=== PATIENT | female | born 1940 | race Caucasian/White ===

== ENCOUNTER 2017-07-28 10:55 | Day surgery (SDC) | payer MEDICARE ==
[~2017-07-28] VITALS: Ht 162.6 cm; Wt 75.7 kg
[~2017-07-28 10:55] MED LIST: ASPIR 8181 MG PO; ATORVASTATIN CA40 MG PO; DICLOFENAC SOD100 G1 TP; DILTIAZEM 24HR240 M3 PO; FUROSEMIDE20 MG PO; ISOSORBIDE MONO30 MG PO; METOPROLOL TART25 MG PO; MULTIVITAMINS1 EAC7 PO; NITROSTAT0.4 MG SL; NORVASC5 MG PO; OLMESARTAN MEDO40 MG PO
--- NOTE | 2017-07-28 12:24 | NUR ---
07/28/17 Radha4 Mimi Mendoza 1217-PATIENT TO PACU ON 3L NC O2 SAT 100% LAYING PRONE. DRESSING CDI TO BACK. RR EVEN. SR
[2017-10-20] MEDS ORDERED: ZANTAC150 MG PO (11:02)
[2017-10-20] MEDS ORDERED: ZOLOFT25 MG PO (11:02)
== END 2017-07-28 13:13 | disposition home or self-care (01) ==
LOC: OPS 10:55 → DS 10:55 → OPS 12:00
PROVIDERS: Specialist
PROC: 079T3ZX Drainage of Bone Marrow, Percutaneous Approach, Diagnostic (ICD-10-PCS; 2017-07-28)
PROC: 07DR3ZX Extraction of Iliac Bone Marrow, Percutaneous Approach, Diagnostic (ICD-10-PCS; principal; 2017-07-28 12:00)
DX: C90.00 Multiple myeloma not having achieved remission (principal); I25.2 Old myocardial infarction; Z95.1 Presence of aortocoronary bypass graft; Z79.899 Other long term (current) drug therapy; Z79.1 Long term (current) use of non-steroidal anti-inflammatories (NSAID); Z79.82 Long term (current) use of aspirin; Z88.5 Allergy status to narcotic agent
CPT/HCPCS: 36415; 80053; 82232; 82784; 83615; 83883; 85025; 99152; J2250; J3010; J7120

== ENCOUNTER 2017-09-10 18:14 | Emergency (ER) | payer MEDICARE ==
[~2017-09-10] VITALS: Ht 162.6 cm; Wt 76.2 kg
--- OUTSIDE RECORDS SUMMARY | ~2017-09-10 | XMS | Encounter Summary ---
Demographics + + + | Address | [address] | | | [place] [address] | + + + | Home Phone | | + + + | Preferred Language | Unknown | + + + | Marital Status | | + + + | Samaritan Affiliation | 1013 | + + + | Race | Unknown | + + + | Ethnic Group | Unknown | + + + Author + + + | Author | [facility] | | | and [place] | + + + | Organization | [facility] | | | and [place] | + + + | Address | Unknown | + + + | Phone | Unavailable | + + + Support + + +---------+ + | Name | Relationship | Address | Phone | + + +---------+ + | Ayad Chahal | ECON | Unknown | | + + +---------+ + | Yonatan Chahal | ECON | Unknown | | + + +---------+ + | Nithya Rondon | ECON | Unknown | | + + +---------+ + | Chitra Haynes | ECON | Unknown | | + + +---------+ + | Belinda Chahal | ECON | Unknown | | + + +---------+ + Care Team Providers + +------+ + | Care Costing Analyst Name | Role | Phone | + +------+ + | Silvio Chu MD | PCP | | + +------+ + Reason for Visit +--------+ + | Reason | Comments | +--------+ + | Other | | +--------+ + Encounter Details +--------+ + + + + | Date | Type | Department | Care Team | Description | +--------+ + + + + | 07/31/ | Telephone | [facility] | Tho, | Other | | 2018 | | [facility] | Steve Dominique MD [address] | | | | [facility] [address] | [address] | | | | | [address] | [place] [address] | | | | | [place] [address] | [phone] | | | | | [phone] | | | +--------+ + + + + Social History + +-------+ +--------+------+ | Tobacco Use | Types | Packs/Day | Years | Date | | | | | Used | | + +-------+ +--------+------+ | Never Smoker | | | | | + +-------+ +--------+------+ + + +---------+ + | Alcohol Use | Drinks/We | oz/Week | Comments | | | ek | | | + + +---------+ + | No | 0 | 0.0 | | | | Standard | | | | | drinks or | | | | | | | | | | equivalen | | | | | t | | | + + +---------+ + + + + | Sex Assigned at | Date Recorded | | | | + + + | Not on file | | + + + as of this encounter Plan of Treatment Not on fileas of this encounter Visit Diagnoses Not on filein this encounter"
--- OUTSIDE RECORDS SUMMARY | ~2017-09-10 | XMS | Encounter Summary ---
Demographics + + + | Address | [address] | | | [place] [address] | + + + | Home Phone | | + + + | Preferred Language | Unknown | + + + | Marital Status | | + + + | Anglican Affiliation | Unknown | + + + | Race | Unknown | + + + | Ethnic Group | Unknown | + + + Author + + + | Author | [facility] | + + + | Organization | [facility] | + + + | Address | Unknown | + + + | Phone | Unavailable | + + + Support + + +---------+ + | Name | Relationship | Address | Phone | + + +---------+ + | Ayad Chahal | ECON | Unknown | | + + +---------+ + Care Team Providers + +------+ + | Care Airfield Services Officer Name | Role | Phone | + +------+ + | Silvio Chu MD | PCP | | + +------+ + Encounter Details +--------+ + + + + | Date | Type | Department | Care Team | Description | +--------+ + + + + | 06/20/ | Orders Only | [facility] | Brandi Verde CMA | Essential | | 2017 | | [place] [address] | | hypertension; | | | | [address] | | Dyslipidemia; | | | | [place] [address] | | Chronic kidney | | | | [phone] | | disease, stage III | | | | | | (moderate) | +--------+ + + + + Social [...] [place] | | | | | | [address] | | | | | | | | +--------+---------+ + + + | 02/07/ | Office | Cardiology | Kadi Boogie, | | | 2017 | Visit | | MD Frankie Yee | | | | | | [address] | | | | | | [place] [address] | | | | | | [phone] | | | | | | | | +--------+---------+ + + + as of this encounter Results Urinalysis (reflex to micro) (06/19/2017) + + [...] + + | Urine | [facility] [address] [facility] [address] [place], [place] | | | [address] | + + + + + | Narrative | + + | Casts: Hyaline 2+ Bacteria: 1+ | + + Uric acid (06/19/2017) + +---------+ + | Component | Value | Ref Range | + +---------+ + | URIC ACID | 7.6 (A) | 2.3 - 6.6 | + +---------+ + + + + | Specimen | Performing Laboratory | + + + | Blood | [facility] [address] [place], [facility] [address] [place] | | | [address] | + + + Protein / creatinine ratio, urine (06/19/2017) + + + + | Component | Value | Ref Range | + + + + | UR | 223.7 (A) | 0 - 150 | | PROTEIN/CREATININE | | | + + + + + + + | Specimen | Performing Laboratory | + + + | Urine - Urine, | [facility] [address], [facility] [address] [place], [place] | | Unspecified Source | [id number] | + + + CBC W/Auto Diff (Reflex to [...] + | Blood | [facility] [address] [facility] [address] [place], [place] | | | [address] | + + + Basic metabolic panel [...] + | Blood | [facility] [address] [facility] [address] [place], [place] | | | [address] | + + + in this encounter Visit Diagnoses + + | Diagnosis | + + | Essential hypertension | + + | Unspecified essential hypertension | + + | Dyslipidemia | + + | Other and unspecified hyperlipidemia | + + | Chronic kidney disease, stage III (moderate) | + + | Chronic kidney disease, Stage III (moderate) | + +"
--- OUTSIDE RECORDS SUMMARY | ~2017-09-10 | XMS | Encounter Summary ---
Demographics + + + | Address | [address] | | | [place] [address] | + + + | Home Phone | | + + + | Preferred Language | Unknown | + + + | Marital Status | | + + + | Yazidi Affiliation | Unknown | + + + | Race | Unknown | + + + | Ethnic Group | Unknown | + + + Author + + + | Author | [facility] | + + + | Organization | [facility] | + + + | Address | Unknown | + + + | Phone | Unavailable | + + + Support + + +---------+ + | Name | Relationship | Address | Phone | + + +---------+ + | Ayad Chahal | ECON | Unknown | | + + +---------+ + Care Team Providers + +------+ + | Care Ux Research Associate Name | Role | Phone | + [...] | , benign | Val[address]lero | [address] | | | | | CKD (chronic | [address] | | | | | kidney | [place], | [place], | | | | | disease), | [place] [address] | [place] [address] | | | | | stage III | Phone: | Phone: | | | | | Persistent | [phone] | [phone] | | | | | proteinuria | Fax: | Fax: | | | | | | [phone] | [phone] | | | | | Hyperuricemi | [...] | [facility] | | 2018 | | [place] [address] | | hypertension, | | | | [address] | | benign; CKD (chronic | | | | [address] [place], [place] | | kidney disease), | | | | [address] | | stage III; | | | [...] | | | | | | [address] [place], [place] | | | | | | [address] | | | | | | | | +--------+---------+ + + + | 02/07/ | Office | Cardiology | Kadi Boogie, | | | 2017 | Visit | | [address] | | | | | | [address], | | | | | | [place] [address] | | | | | | [phone] | | | | | | | [...]
--- OUTSIDE RECORDS SUMMARY | ~2017-09-10 | XMS | Encounter Summary ---
Demographics + + + | Address | [address] | | | [place] [address] | + + + | Home Phone | | + + + | Preferred Language | Unknown | + + + | Marital Status | | + + + | Latter-Day Affiliation | Unknown | + + + | Race | Unknown | + + + | Ethnic Group | Unknown | + + + Author + + + | Author | [facility] | + + + | Organization | [facility] | + + + | Address | Unknown | + + + | Phone | Unavailable | + + + Support + + +---------+ + | Name | Relationship | Address | Phone | + + +---------+ + | Ayad Chahal | ECON | Unknown | | + + +---------+ + Care Team Providers + +------+ + | Care Carbide Grinder Name | Role | Phone | + [...] Dyslipidemia; | | | | [place] [address] | | Chronic kidney | | | | [phone] | | disease, stage III | | [...] 10/23/ | Office | Nephrology | Avila uPlido MD | | | 2017 | Visit [...] | | | | | | [place] [address] | | | | | | [phone] | | | | | | | [...] + | Urine | [facility] [address] [facility] [address] [place], [place] | | | [address] | + + + + + | [...] + | Blood | [facility] [address] [place], [facility] [address] [place] | | | [address] | + + + Protein / creatinine ratio, urine (06/19/2017) + + + + | Component | Value | Ref Range | + + + + | UR | 223.7 (A) | 0 - 150 | | PROTEIN/CREATININE | | | + + + + + + + | Specimen | Performing Laboratory | + + + | Urine - Urine, | [facility] [address] [place], [facility] [address] [place], [place] | | Unspecified Source | [address] | + + + CBC W/Auto Diff [...] + | Blood | [facility] [address] [facility] [address] [place], [place] | | | [address] | + + + Basic metabolic panel [...] + | Blood | [facility] [address] [facility] [address] [place], [place] | | | [address] | + + + in this encounter [...]
--- OUTSIDE RECORDS SUMMARY | ~2017-09-10 | XMS | Clinical Summary ---
Demographics + + + | Address | [address] | | | [place] [address] | + + + | Home Phone | | + + + | Preferred Language | Unknown | + + + | Marital Status | | + + + | Shinto Affiliation | 1013 | + + + | Race | Unknown | + + + | Ethnic Group | Unknown | + + + Author + + + | Author | [facility] | | | and [place] | + + + | Organization | [facility] | | | and [place]ana | [...] Team Providers + +------+ + | Care Geographic Information Scientist Name | Role | Phone | + +------+ + | Silvio Chu MD | PP | | + +------+ + Allergies No Known Allergies Current Medications + + +--------+---------+------+------+-------+ | Prescription | Sig. | Disp. | Refills | Star | End | Statu | | | | | | t | Date | s | | | | | | Date | | | + + +--------+---------+------+------+-------+ | atorvaSTATin | 40 mg Daily. | | | 01/2 | | Activ | | (LIPITOR) 40 mg | | | | 5/20 | | e | | tablet | | | | 17 | | | + + +--------+---------+------+------+-------+ | diclofenac | | | | 02/1 | | Activ | | (VOLTAREN) 1% GEL | | | | 0/20 | | e | | | | | | 17 | | | + + +--------+---------+------+------+-------+ | furosemide (LASIX) | 40 mg. | | | 12/3 | | Activ | | 20 mg tablet | | | | 20 | | e | | | | | | 16 | | | + + +--------+---------+------+------+-------+ | olmesartan | | | | 02/2 | | Activ | | (BENICAR) 40 MG | | | | 3/20 | | e | | tablet | | | | 17 | | | + + +--------+---------+------+------+-------+ | apixaban (ELIQUIS) | Take 5 mg by mouth 2 | | | | | Activ | | 5 mg tablet | times daily. | | | | | e | + + +--------+---------+------+------+-------+ | azithromycin | Take 1 tablet by | 7 | 0 | 04/0 | | Activ | | (ZITHROMAX) 250 mg | mouth Daily. Two | tablet | | 6/20 | | e | | tablet | tabs first day then | | | 17 | | | | | one a day till gone | | | | | | + + +--------+---------+------+------+-------+ | aspirin 81 mg | Take 1 tablet by | 30 | | 04/0 | | Activ | | chewable tablet | mouth Daily. | tablet | | 6/20 | | e | | | | | | 17 | | | + + +--------+---------+------+------+-------+ | benzonatate | Take 1 capsule by | | 0 | 04/0 | | Activ | | (TESSALON) 200 MG | mouth 3 times daily | | | 6/20 | | e | | capsule | as needed for Cough. | | | 17 | | | + + +--------+---------+------+------+-------+ | metoprolol | Take 1 tablet by | 60 | 11 | 04/0 | 04/0 | Expir | | tartrate (LOPRESSOR) | mouth 2 times daily. | tablet | | 6/20 | 6/20 | ed | | 25 mg tablet | | | | 17 | 18 | | + + +--------+---------+------+------+-------+ Active Problems + + + | Problem | Noted Date | + + + | S/P CABG x 3 | 08/25/2016 | + + + + + | Overview: | + + + + + | NSTEMI (non-ST elevated myocardial infarction) ([facility]) | 07/20/2016 | + + + + + | Overview: Cardiac cath 20 July 2016Left ventricular | | end-diastolic pressure (LVEDP) was 26 mm Hg. There was no | | gradient across the aortic valve.Left Ventriculography: | | Estimated EF 38% - distal anterior and distal inferior | | akinesis. Left main coronary artery: Large vessel 10%Left | | anterior descending coronary artery: Mid 99% stenosis EVENS 2 | | flow. Good distal targetCircumflex coronary artery: 80% | | before the major marginal branch. 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 | + + + + + | Dyslipidemia | 07/20/2016 | + + + | Essential hypertension | 07/20/2016 | + + + | H/O: CVA (cerebrovascular accident) | 07/20/2016 | + + + Encounters +--------+ + + + + | Date | Type | Specialty | Care Team | Description | +--------+ + + + + | 08/22/ | Refill | | Lisa Colunga, | Medication Refill | | 2017 | | | | | +--------+ + + + + | 07/31/ | Telephone | | Tho | Other | | 2017 | | | Steve Dominique MD | | +--------+ + + + + from Last 3 Months Family History + + +------+ + | Medical History | Relation | Name | Comments | + + +------+ + | Coronary artery | Daughter | | | | disease | | | | + + +------+ + | Coronary artery | Mother | | | | disease | | | | + + +------+ + | Coronary artery | Son | | | | disease | | | | + + +------+ + + +------+--------+ + | Relation | Name | Status | Comments | + +------+--------+ + | Daughter | | | | + +------+--------+ + | Mother | | | | + +------+--------+ + | Son | | | | + +------+--------+ + Social History + +-------+ +--------+------+ | [...] + + + | Blood Pressure | 120/84 | 08/25/2016 1230 PDT | + + + + | Pulse | 68 | 08/25/2016 1230 PDT | + + + + | Temperature | 36.1 C (97 F) | 07/20/20162219 PST | + + + + | Respiratory Rate | 14 | 08/25/20161229 PDT | + + + + | Oxygen Saturation | 95% | 07/20/20162219 PST | + + + + | Inhaled Oxygen | - | - | | Concentration | | | + + + + | Weight | 76.7 kg (169 lb) | 08/25/20161229 PDT | + + + + | Height | 167.6 cm (5' 6") | 08/25/20161229 PDT | + + + + | Body Mass Index | 27.28 | 08/25/2016 1230 PDT | + + + + Plan of Treatment + + + + + | Health [...] | + + + + + Results Not on filefrom Last 3 Months Insurance + +--------+ +--------+ +---------+ | Payer | Benefi | Subscriber | Type | Phone | Address | | | t Plan | ID | | | | | | / | | | | | | | Group | | | | | + +--------+ +--------+ +---------+ | MEDICARE | MEDICA | xxxxxxxxxx | Medica | [phone] | | | RE | | re | [phone] | | | | PART A | | | | | | | AND B | | | | | + +--------+ +--------+ +---------+ | AARP | AARP | xxxxxxxxxxx | Indemn | [phone] | | | | MDCR | | ity | [phone] | | | | SUPPL | | | | | + +--------+ +--------+ +---------+ + +--------+ +--------+ + + | Guarantor Name | Accoun | Relation to | Date | Phone | Billing Address | | | t Type | Patient | of | | | | | | | | | | + +--------+ +--------+ + + | ANDERSON CHAHAL | Person | Self | [birth year] | Home: | [address] | | | joan/Mandeep | | [phone] | [phone] | [place] | | | opal | | | 1965 | [address] | + +--------+ +--------+ + +
--- OUTSIDE RECORDS SUMMARY | ~2017-09-10 | XMS | Encounter Summary ---
Demographics + + + | Address | [address] | | | [place] [address] | + + + | Home Phone | | + + + | Preferred Language | Unknown | + + + | Marital Status | | + + + | Caodaism Affiliation | Unknown | + + + | Race | Unknown | + + + | Ethnic Group | Unknown | + + + Author + + + | Author | [facility] | + + + | Organization | [facility] | + + + | Address | Unknown | + + + | Phone | Unavailable | + + + Support + + +---------+ + | Name | Relationship | Address | Phone | + + +---------+ + | Ayad Chahal | ECON | Unknown | | + + +---------+ + Care Team Providers + +------+ + | Care Elevator Erector Name | Role | Phone | + +------+ + | Silvio Chu MD | PCP | | + +------+ + Reason for Visit Consult and Treat (Routine) + +--------+ + + + + | Status | Reason | Specialty | Diagnoses / | Referred By | Referred To | | | | | Procedures | Contact | Contact | + +--------+ + + + + | Authorized | | Nephrology | Diagnoses | Vlad, | Avila Pulido | | | | | Chronic | MD Silvio | [address] | | | | | kidney | [address] | | | | | disease, | [address] | | | | | stage 3 | [address] | [place], | | | | | (moderate) | [place], | [place] [address] | | | | | Procedures | [place] [address] | Phone: | | | | | CONSULT | Phone: | [phone] | | | | | | [phone] | Fax: | | | | | | Fax: | [phone] | | | | | | [phone] | | + +--------+ + + + + Encounter Details +--------+ + + + + | Date | Type | Department | Care Team | Description | +--------+ + + + + | 06/26/ | Initial | [facility] | Avila Pulido MD | Essential | | 2018 | consult | [place] [address] | [address] | hypertension, benign | | | | [facility] [address] | [address] [place], [place] | (Primary Dx); CKD | | | | [address] [place], [place] | [address] | (chronic kidney | | | | [address] | | disease), stage III; | | [...] + + + | Blood Pressure | 120/75 | 06/26/2017 9:49 AM PST | + + + + | Pulse | 68 | 06/26/2017 9:49 AM PST | + + + + | Temperature | 35.7 C (96.3 F) | 06/26/2017 9:49 AM PST | + + + + | Respiratory Rate | - | - | + + + + | Oxygen Saturation | 95% | 06/26/2017 9:49 AM PST | + + + + | Inhaled Oxygen | - | - | | Concentration | | | + + + + | Weight | 74.8 kg (165 lb) | 06/26/2017 9:49 AM PST | + + + + | Height | 165.1 cm (5' 5") | 06/26/2017 9:49 AM PST | + + + + | Body Mass Index | 27.46 | 06/26/2017 9:49 AM PST | + + + + in this encounter Instructions Patient Instructions - Avila Pulido MD - 06/26/2017 10:00 AM PSTDiscussions/Recommendatio ns: I discussed today with Ms. Chahal the meaning of her CKD and the interaction of that wit h her hypertension. I stressed the importance of keeping her BP controlled and avoiding getting dehydrated i f we are to have a chance at helping preserve her renal function. She showed good understan ding. I gave her instructions on how to chart her blood pressure in the appropriate manner at home. She is to call us if they fall outside of the optimal provided range. She will bring her sphygmomanometer for validation once a year. She will strictly abide by a low salt diet and will avoid all kinds of NSAIDs for analge sean. Also: I will not change any of her vasoactive meds today. She will report back to me her home BP readings if they fall outside of the optimal prov ided range. At that time, I will decide whether any change to his vasoactive regimen is clinton anted. I asked her to start taking a MVI with Folate. I sent her for a renal & bladder U/S soon. I sent her evaluation by the Hem/Onc team here locally for her apparent monoclonal gammo eulogio. I will also leave the management of her anemia to the Hematology team. She will continue to F/U with your office regularly. She will have a RFP, CBC, intact PTH, uric acid, urinalysis, Urine total xnrwwpl-ic-iggh tinine ratio before she comes back in 3 months.in this encounter Progress Notes Avila Pulido MD - 06/26/2017 10:00 AM PSTFormatting of this note may be different from th e original. Patient Active Problem List Diagnosis S/P CABG x 3 H/O: CVA (cerebrovascular accident) Essential hypertension Dyslipidemia Dear Dr Chu: Thank you for the opportunity to see Ms. Chahal in consult today. As you are familiar with her case, I will not state her past history in detail. Briefly, she is a 76 y.o. female pa tient with past history as delineated above. she is here to be evaluated for her CKD & its associated complications. Her sCr & eGFR in 03/2017 were 1.5 & 34. The patient has history of hypertension since ~1989; her BP control has been reportedly french quate; she denies any history of prolonged exposure to NSAIDs or recent exposure to known n ephrotoxins. she denies any recurrent nephrolithiasis or pyelonephritis. she tells me that s he's had no history of urinary retention, gross hematuria or dysuria. she has mild urge inco ntinence symptoms. No symptoms of UTI; she has 0-1 nightly nocturia. No history of passing kidney stones. she has no foamy urine either. her baseline Creatinine is 1.5. There is no f amily history of renal genetic diseases such as PKD. she says that she feels 'good ' today. she denies any blurred vision tinnitus, headache, f ever, chills, or cough. No nausea, vomiting, abdominal pain, diarrhea, melena, or hematoche jammie. No chest pain, palpitation, dizziness, loss of consciousness, orthopnea, paroxysmal no cturnal dyspnea; she has had a mild leg edema for a few years. The following portions of the patient's history were reviewed and updated as appropriate: a llergies, current medications, past medical history, past social history, past surgical hist ory, family history and problem list. I also reviewed with her the records received from you r office; these were very informative. As in History of Present Illness & in Assessment. All the twelve systems were reviewed and were otherwise negative. Current Outpatient Prescriptions Medication Sig Dispense Refill albuterol (PROAIR HFA) 108 (90 BASE) MCG/ACT inhaler Inhale 2 puffs into the lungs ever y 4 (four) hours as needed for Wheezing. amLODIPine (NORVASC) 5 MG tablet Take 5 mg by mouth daily. aspirin 81 MG tablet Take 81 mg by mouth daily. atorvastatin (LIPITOR) 40 MG tablet Take 40 mg by mouth nightly. Diclofenac Sodium 1 % CREA Place onto the skin. furosemide (LASIX) 40 MG tablet Take 20 mg by mouth daily. metoprolol (LOPRESSOR) 25 MG tablet Take 25 mg by mouth 2 (two) times daily. nitroGLYCERIN (NITROSTAT) 0.[address] 0.4 mg under the tongue every 5 (five) minutes as needed for Chest pain. olmesartan (BENICAR) 40 MG tablet Take 40 mg by mouth daily. Doxylamine Succinate, Sleep, (SLEEP AID PO) Take by mouth. No current facility-administered medications for this visit. Physical Exam: BP 120/75 (BP Location: Right upper arm, Patient Position: Sitting) | Pulse 68 | Temp 96. 3 F (35.7 C) (Temporal) | Ht 1.651 m (5' 5") | Wt 74.8 kg (165 lb) | SpO2 95% | BMI 27.46 kg/m General appearance: Pleasant, not in acute distress. Neck: Supple without tracheal deviation or jugular venous distension. Head and ENT: Head is atraumatic. The oropharynx is without erythema or thrush. Eyes: Anicteric. The extraocular muscle movements are normal. Lungs: Clear to auscultation bilaterally. There are no wheezes. Heart: Regular rate and rhythm without any rub, gallop. Grade 2 systolic murmur, best at t he LSB. Abdominal exam: Soft and nontender with normal bowel sounds. Musculoskeletal: No costovertebral angle tenderness bilaterally. Extremities: Warm to touch with 1+ leg edema. There is no cyanosis. Skin: There are no rashes, petechiae, or ecchymosis. Neurological: Awake, alert, and oriented to time, place, and person. Normal gross motor po wer. There is no asterixis. Psychiatric: The patient s behavior is normal. Judgment and thought content are normal. Lab Results Component Value Date BUN 06/19/2017 CREATININE 1.49 (A) 06/19/2017 EGFR 34 (A) 06/19/2017 NA 139 06/19/2017 K 4.3 06/19/2017 CL 104 06/19/2017 CO2 22 06/19/2017 CA 9.6 06/19/2017 ALB 3.8 03/31/2017 HGB 10.8 (A) 06/19/2017 URICACID 7.6 (A) 06/19/2017 WBC 5.3 06/19/2017 HCT 31.9 (A) 06/19/2017 ALBUMIN 4.05 04/24/2017 FERRITIN 147.1 04/24/2017 LABIRON 37.7 04/24/2017 LABPROT 223.7 (A) 06/19/2017 Assessment: Ms. Chahal is a 76 y.o. female patient with stage III CKD on a background of longstanding h ypertension. 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 The possibility that the kidneys are involved in a monoclonal gammopathy is the re. RENAL FUNCTION: Relatively stable vs 03/2017 BLOOD PRESSURE: controlled BLOOD SUGAR: Reports it normal ELECTROLYTES: ok ANEMIA: Mild; macrocytic VITAMIN D: To be checked thru your office PARATHYROID HORMONE: To be checked URIC ACID: Mildly up PROTEINURIA: mild URINALYSIS: No UTI or hematuria VOLUME STATUS: Euvolumic. Discussions/Recommendations: I discussed today with Ms. Chahal the meaning of her CKD and the interaction of that wit h her hypertension. I stressed the importance of keeping her BP controlled and avoiding getting dehydrated i f we are to have a chance at helping preserve her renal function. She showed good understan ding. I gave her instructions on how to chart her blood pressure in the appropriate manner at home. She is to call us if they fall outside of the optimal provided range. She will bring her sphygmomanometer for validation once a year. She will strictly abide by a low salt diet and will avoid all kinds of NSAIDs for analge sean. Also: I will not change any of her vasoactive meds today. She will report back to me her home BP readings if they fall outside of the optimal prov ided range. At that time, I will decide whether any change to his vasoactive regimen is clinton anted. I asked her to start taking a MVI with Folate. I sent her for a renal & bladder U/S soon. I sent her evaluation by the Hem/Onc team here locally for her apparent monoclonal gammo eulogio. I will also leave the management of her anemia to the Hematology team. She will continue to F/U with your office regularly. She will have a RFP, CBC, intact PTH, uric acid, urinalysis, Urine total zvamrkw-wp-spjv tinine ratio before she comes back in 3 months. More than 30 minutes of this 60-minute visit was spent in education and counseling and a nswering all of her questions to her satisfaction. Thank you Dr Chu for the opportunity to see this patient in consult today. Please do n ot hesitate to call me at any time with questions or concerns. Truly yours, Avlia Johnsonoum, MD [facility] in this encounter Plan of Treatment +--------+---------+ + + + | Date | Type | Specialty | Care Team | Description | +--------+---------+ + + + | 10/23/ | Office | Nephrology | Avila Pulido MD | | | 2017 | Visit | | [address] | | | | | | [address] [place] | | | | | | [id number] | | | | | | | | +--------+---------+ + + + | 02/07/ | Office | Cardiology | Kadi Boogie, | | | 2017 | Visit | | MD Frankie Yee | | | | | | Dr [address], | | | | | | [place] [address] | | | | | | [phone] | | | | | | | | +--------+---------+ + + + as of this encounter Visit Diagnoses + + | Diagnosis | + + | Essential hypertension, benign - Primary | + + | CKD (chronic kidney [...]
--- OUTSIDE RECORDS SUMMARY | ~2017-09-10 | XMS | Encounter Summary ---
Demographics + + + | Address | [address] | | | [place] [address] | + + + | Home Phone | | + + + | Preferred Language | Unknown | + + + | Marital Status | | + + + | Hindu Affiliation | Unknown | + + + | Race | Unknown | + + + | Ethnic Group | Unknown | + + + Author + + + | Author | [facility] | + + + | Organization | [facility] | + + + | Address | Unknown | + + + | Phone | Unavailable | + + + Support + + +---------+ + | Name | Relationship | Address | Phone | + + +---------+ + | Ayad Chahal | ECON | Unknown | | + + +---------+ + Care Team Providers + +------+ + | Care Optometrist Name | Role | Phone | + +------+ + | Paddy [place] MD | PCP | | + +------+ + Reason for Visit + + + | Reason | Comments | + + + | Labs Only | [facility] dated 06/19/2017 | + + + Encounter Details +--------+ + + + + | Date | Type | Department | Care Team | Description | +--------+ + + + + | 06/20/ | Documentati | [facility] | Brandi Verde CMA | Labs Only ([facility] | | 2018 | on Only | [place] [address] | | Labs dated | | | | [address] | | 06/19/2017) | | | | [place] [address] | | | | | | [phone] | | | +--------+ + + + [...] [place] | | | | | | [address] | | | | | | | | +--------+---------+ + + + | 02/07/ | Office | Cardiology | Kadi Boogie, | | | 2017 | Visit | | MD Frankie Yee | | | | | | Dr [address], | | | | | | [place] [address] | | | | | | [phone] | | | | | | | | +--------+---------+ + + + as of this encounter Visit Diagnoses Not on filein this encounter"
--- OUTSIDE RECORDS SUMMARY | ~2017-09-10 | XMS | Encounter Summary ---
Demographics + + + | Address | [address] | | | [place] [address] | + + + | Home Phone | | + + + | Preferred Language | Unknown | + + + | Marital Status | | + + + | Jewish Affiliation | Unknown | + + + | Race | Unknown | + + + | Ethnic Group | Unknown | + + + Author + + + | Author | [facility] | + + + | Organization | [facility] | + + + | Address | Unknown | + + + | Phone | Unavailable | + + + Support + + +---------+ + | Name | Relationship | Address | Phone | + + +---------+ + | Ayad Chahal | ECON | Unknown | | + + +---------+ + Care Team Providers + +------+ + | Care Phlebotomy Manager Name | Role | Phone | + [...] (chronic kidney | | 2017 | | [place] [address] | | disease), stage III | | | | [address] | | (Primary Dx); | | | | [address] [place], [place] | | Essential | | | | [address] | | hypertension, | | | | [...] [place] | | | | | | [id number] | | | | | | | | +--------+---------+ + + + | 02/07/ | Office | Cardiology | Kadi Boogie, | | | 2017 | Visit | | MD Frankie Yee | | | | | | Dr [address] | | | | | | [place] [address] | | | | | | [phone] | | | | | | | [...]
--- OUTSIDE RECORDS SUMMARY | ~2017-09-10 | XMS | Encounter Summary ---
Demographics + + + | Address | [address] | | | [place] [address] | + + + | Home Phone | | + + + | Preferred Language | Unknown | + + + | Marital Status | | + + + | Advent Affiliation | Unknown | + + + | Race | Unknown | + + + | Ethnic Group | Unknown | + + + Author + + + | Author | [facility] | + + + | Organization | [facility] | + + + | Address | Unknown | + + + | Phone | Unavailable | + + + Support + + +---------+ + | Name | Relationship | Address | Phone | + + +---------+ + | Ayad Chahal | ECON | Unknown | | + + +---------+ + Care Team Providers + +------+ + | Care Manufacturing Quality Inspector Name | Role | Phone | + [...] 06/26/ | Documentati | [facility] | Brandi Verde CMA | Imaging | | 2018 | on Only | [place] [address] | | (Retroperitoneal | | | | [address] | | from [facility] | | | | [address] [place], [place] | | dated 05/03/2017) | | | | [address] | | | +--------+ + + + [...] [place] | | | | | | [address] | | | | | | | | +--------+---------+ + + + | 02/07/ | Office | Cardiology | Kadi Boogie, | | | 2017 | Visit | | MD Frankie Yee | | | | | | Dr [address], | | | | | | [place] [address] | | | | | | [phone] | | | | | | | | +--------+---------+ + + + as of this encounter Visit Diagnoses Not on filein this encounter"
--- OUTSIDE RECORDS SUMMARY | ~2017-09-10 | XMS | Encounter Summary ---
Demographics + + + | Address | [address] | | | [place] [address] | + + + | Home Phone | | + + + | Preferred Language | Unknown | + + + | Marital Status | | + + + | Pentecostal Affiliation | Unknown | + + + | Race | Unknown | + + + | Ethnic Group | Unknown | + + + Author + + + | Author | [facility] | + + + | Organization | [facility] | + + + | Address | Unknown | + + + | Phone | Unavailable | + + + Support + + +---------+ + | Name | Relationship | Address | Phone | + + +---------+ + | Ayad Chahal | ECON | Unknown | | + + +---------+ + Care Team Providers + +------+ + | Care Account Liaison Hospice Name | Role | Phone | + [...] | Chronic | MD Silvio | [address] | | | | | kidney | [address] | | | | | disease, | [address] | | | | | stage 3 | [address] | [place], | | | | | (moderate) | [place], | [place] [address] | | | | | Procedures | [place] [address] | Phone: | | | | | CONSULT | Phone: | [phone] | | | | | | [phone] | Fax: | | | | | | Fax: | [phone] | | | | | | [phone] | | + +--------+ + + + [...] hypertension, benign | | | | [address] [facility] [address] | [address] [place], [place] | (Primary Dx); CKD | | | | [address] [place], [place] | [address] | (chronic kidney | [...] intact PTH, uric acid, urinalysis, Urine total uhaglhe-ug-jaqm tinine ratio before she comes back in [...] intact PTH, uric acid, urinalysis, Urine total zzpxhto-dh-pghy tinine ratio before she comes back in [...] time with questions or concerns. Truly yours, Avila Johnsonoum, MD [facility] in this encounter Plan of Treatment +--------+---------+ + + + | Date | Type | Specialty | Care Team | Description | +--------+---------+ + + + | 10/23/ | Office | Nephrology | Avila Pulido MD | | | 2017 | Visit | | [address] | | | | | | [address] [place] | | | | | | [id number] | | | | | | | | +--------+---------+ + + + | 02/07/ | Office | Cardiology | Kadi Boogie, | | | 2017 | Visit | | MD Frankie Yee | | | | | | Dr [address], | | | | | | [place] [address] | | | | | | [phone] | | | | | | | [...]
--- OUTSIDE RECORDS SUMMARY | ~2017-09-10 | XMS | Encounter Summary ---
Demographics + + + | Address | [address] | | | [place] [address] | + + + | Home Phone | | + + + | Preferred Language | Unknown | + + + | Marital Status | | + + + | Mu-Ism Affiliation | Unknown | + + + | Race | Unknown | + + + | Ethnic Group | Unknown | + + + Author + + + | Author | [facility] [employer] [facility] | + + + | Organization | [facility] | + + + | Address | Unknown | + + + | Phone | Unavailable | + + + Support + + +---------+ + | Name | Relationship | Address | Phone | + + +---------+ + | Ayad Chahal | ECON | Unknown | | + + +---------+ + Care Team Providers + +------+ + | Care Bar Catcher Name | Role | Phone | + [...] + | 08/02/ | Office | [facility] [place] | Kadi Martinez, | S/P CABG x 3 | | 2018 | Visit | Cardiology [place] | MD Frankie Yee | (Primary Dx); | | | | [address] | [address], | Essential | | | | [facility] [address] | [place] [address] | hypertension, | | | | [place] [address] | [phone] | benign; CKD (chronic | | | | [phone] | | kidney disease), | | | [...] coronary artery disease and bypass surgery in [facility] 2017. No further hospitalization. Did not get the knee surgery yet. Denies any chest pain or shortness of breath. No change in medication. Her activity has been limited due to left knee pain has been using a cane to ambulate. Continues to have numbness of the sternotomy site. Previously patient history. Patient had an episode of non-ST elevation DE on July 2016. She was transferred to [facility] where she had bypass surgery. She developed [...] disease History of pulmonary embolism Hx of usp use of blood thinners Hyperlipidemia Hypertension Malignant [...] | | | | | | [address] [facility] | | | | | | [id number] | | | | | | | | +--------+---------+ + + + | 02/07/ | Office | Cardiology | Kadi Martinez, | | | 2017 | Visit | | [address] | | | | | | Dr [address], | | | | | | [place] [address] | | | | | | [phone] | | | | | | | [...]
--- OUTSIDE RECORDS SUMMARY | ~2017-09-10 | XMS | Clinical Summary ---
Demographics + + + | Address | [address] | | | [place] [address] | + + + | Home Phone | | + + + | Preferred Language | Unknown | + + + | Marital Status | | + + + | Orthodox Affiliation | 1013 | + + + | Race | Unknown | + + + | Ethnic Group | Unknown | + + + Author + + + | Author | [facility] | | | and Michaelana | + + + | Organization | [facility] | | | and Michaelana [...] Team Providers + +------+ + | Care Vacuum Furnace Operator Name | Role | Phone | + [...] + | NSTEMI (non-ST elevated myocardial infarction) ([facility]) | 07/20/2016 | + + [...] | Self | [birth year] | Home: | [address] | | | joan/Mandeep | | 1941 | [phone] | [place] | | | opal | | | 1965 | [address] | + +--------+ +--------+ + +
--- OUTSIDE RECORDS SUMMARY | ~2017-09-10 | XMS | Encounter Summary ---
Demographics + + + | Address | [address] | | | [place] [address] | + + + | Home Phone | | + + + | Preferred Language | Unknown | + + + | Marital Status | | + + + | Restoration Affiliation | Unknown | + + + | Race | Unknown | + + + | Ethnic Group | Unknown | + + + Author + + + | Author | [facility] [employer] | + + + | Organization | [facility] | + + + | Address | Unknown | + + + | Phone | Unavailable | + + + Support + + +---------+ + | Name | Relationship | Address | Phone | + + +---------+ + | Ayad Chahal | ECON | Unknown | | + + +---------+ + Care Team Providers + +------+ + | Care Referral Nurse Name | Role | Phone | + +------+ + | Paddy [place]ri[place] MD | PCP | | + +------+ + Encounter Details +--------+ + + + + | Date | Type | Department | Care Team | Description | +--------+ + + + + | 06/16/ | Orders Only | [facility] | Brandi Verde CMA | Chronic kidney | | 2017 | | [place] [address] | | disease, stage III | | | | [address] | | (moderate) (Primary | | | | [place] [address] | | Dx); Essential | | | | [phone] | | hypertension; | | | | [...] | | 2017 | Visit | | Arnoldo Ramirez | | | | | | [address] [place] | | | | | | [address] | | | | | | | | +--------+---------+ + + + | 02/07/ | Office | Cardiology | Kadi Boogie, | | | 2017 | Visit | | [address] | | | | | | Dr [address], | | | | | | [place] [address] | | | | | | [phone] | | | | | | | [...] + | Urine | [facility] [address], [facility] [address] [place], [place] | | | [address] | + + + + + | [...] + | Blood | [facility] [address] [facility] [address] [place] | | | [address] | + + + Protein / creatinine ratio, urine (06/19/2017) + + + + | Component | Value | Ref Range | + + + + | UR | 223.7 (A) | 0 - 150 | | PROTEIN/CREATININE | | | + + + + + + + | Specimen | Performing Laboratory | + + + | Urine - Urine, | [facility] [address], [place] | | Unspecified Source | [address] | + + + CBC W/Auto Diff [...] + | Blood | [facility] [address] | | | [address] | + + + Basic metabolic panel [...] + | Blood | [facility] [address] [place] | | | [address] | + + + in this encounter Visit Diagnoses + + | Diagnosis | + + | Chronic kidney disease, stage III (moderate) - Primary | + + | Chronic kidney disease, Stage III (moderate) | + + | Essential hypertension | + + | Unspecified essential hypertension | + + | Dyslipidemia | + + | Other and unspecified hyperlipidemia | + +"
--- OUTSIDE RECORDS SUMMARY | ~2017-09-10 | XMS | Encounter Summary ---
Demographics + + + | Address | [address] | | | [place] [address] | + + + | Home Phone | | + + + | Preferred Language | Unknown | + + + | Marital Status | | + + + | Temple Affiliation | 1013 | + + + | Race | Unknown | + + + | Ethnic Group | Unknown | + + + Author + + + | Author | [facility] | | | and Michaelana | + + + | Organization | [facility] | | | and Michaelana | [...] Team Providers + +------+ + | Care Osteopathic Physician Name | Role | Phone | + +------+ + | Silvio Chu MD | PCP | | + +------+ + Reason for Visit + + + | Reason | Comments | + + + | Medication Refill | | + + + Encounter Details +--------+--------+ + + + | Date | Type | Department | Care Team | Description | +--------+--------+ + + + | 08/22/ | Refill | [facility] | Lisa Colunga, | Medication Refill | | 2018 | | CARDIOLOGY [address] | MD [address] | | | | | [place], | [place] | | | | | [place] [address] | [address] | | | | | [phone] | | | +--------+--------+ + + + Social History + +-------+ [...]
--- OUTSIDE RECORDS SUMMARY | ~2017-09-10 | XMS | Clinical Summary ---
Demographics + + + | Address | [address] | | | [place] [address] | + + + | Home Phone | | + + + | Preferred Language | Unknown | + + + | Marital Status | | + + + | Gnosticist Affiliation | Unknown | + + + | Race | Unknown | + + + | Ethnic Group | Unknown | + + + Author + + + | Author | [facility] [employer] [facility] | + + + | Organization | [facility] | + + + | Address | Unknown | + + + | Phone | Unavailable | + + + Support + + +---------+ + | Name | Relationship | Address | Phone | + + +---------+ + | Ayad Chahal | ECON | Unknown | | + + +---------+ + Care Team Providers + +------+ + | Care Instructional Technology Teacher Name | Role | Phone | + [...] [place] | | | | | | [address] | | | | | | | | +--------+---------+ + + + | 02/07/ | Office | | Kadi Boogie, | | | 2017 | Visit | | [address] | | | | | | Dr [address], | | | | | | [place] [address] | | | | | | [phone] | | | | | | | [...] + + | Urine - Urine, | [address] [place] | | Unspecified Source | [address] | + + + Urinalysis (reflex to [...] + + | Urine | [facility] [address] [place] [address] [place] | | | [address] | + + + + + | [...] + | Blood | [facility] [address], [address] [place], [place] | | | [address] | + + + Uric acid (06/19/2017) + +---------+ + | Component | Value | Ref Range | + +---------+ + | URIC ACID | 7.6 (A) | 2.3 - 6.6 | + +---------+ + + + + | Specimen | Performing Laboratory | + + + | Blood | [facility] [address], [address] [place], [place] | | | [address] | + + + Basic metabolic panel [...] + | Blood | [facility] [address], [facility] [address] [place], [place] | | | [address] | + + + from Last 3 [...] | [id number] | | | [address] | | | RE | | | | [place] [address] | | | IP-OP | | | [...] | Self | [birth year] | Home: | [address] | | | al/Fam | | 1941 | [phone] | [place] | | | [place]al | | | 1965 | [address] | + +--------+ +--------+ + +
--- OUTSIDE RECORDS SUMMARY | ~2017-09-10 | XMS | Encounter Summary ---
Demographics + + + | Address | [address] | | | [place] [address] | + + + | Home Phone | | + + + | Preferred Language | Unknown | + + + | Marital Status | | + + + | Sabianist Affiliation | Unknown | + + + | Race | Unknown | + + + | Ethnic Group | Unknown | + + + Author + + + | Author | [facility] [employer] [facility] | + + + | Organization | [facility] | + + + | Address | Unknown | + + + | Phone | Unavailable | + + + Support + + +---------+ + | Name | Relationship | Address | Phone | + + +---------+ + | Ayad Chahal | ECON | Unknown | | + + +---------+ + Care Team Providers + +------+ + | Care Electric Melt Operator Name | Role | Phone | [...] (Primary | | | | [place] [address] | | Dx); Essential | | | | [phone] | | hypertension; | | | | [...] | | | | | | [place] [address] | | | | | | [phone] | | | | | | | [...] + | Urine | [facility] [address] [place], [facility] [address] [place], [place] | | | [address] | + + + + + | [...] + | Blood | [facility] [address] [facility] [address] [place] | | | [address] | + + + Protein / creatinine [...] Urine - Urine, | [facility] [address], [place] | | Unspecified Source | [address] | + + + CBC W/Auto Diff [...] + | Blood | [facility] [address] | | | [address] | + + + Basic metabolic panel [...] + | Blood | [facility] [address] [place] | | | [address] | + + + in this encounter [...]
--- OUTSIDE RECORDS SUMMARY | ~2017-09-10 | XMS | Encounter Summary ---
Demographics + + + | Address | [address] | | | [place] [address] | + + + | Home Phone | | + + + | Preferred Language | Unknown | + + + | Marital Status | | + + + | Restorationism Affiliation | 1013 | + + + | Race | Unknown | + + + | Ethnic Group | Unknown | + + + Author + + + | Author | [facility] | | | and Michaelana | + + + | Organization | [facility] | | | and Michaelana [...] Team Providers + +------+ + | Care Electrician Apprentice Powerhouse Name | Role | Phone | + [...] [address] | | | | | [address] | [place] [address] | | | | | [place] [address] | [phone] | | | | | [phone] | | | +--------+ + + + [...]
--- OUTSIDE RECORDS SUMMARY | ~2017-09-10 | XMS | Encounter Summary ---
Demographics + + + | Address | [address] | | | [place] [address] | + + + | Home Phone | | + + + | Preferred Language | Unknown | + + + | Marital Status | | + + + | Cheondoism Affiliation | Unknown | + + + | Race | Unknown | + + + | Ethnic Group | Unknown | + + + Author + + + | Author | [facility] [employer] [facility] | + + + | Organization | [facility] | + + + | Address | Unknown | + + + | Phone | Unavailable | + + + Support + + +---------+ + | Name | Relationship | Address | Phone | + + +---------+ + | Ayad Chahal | ECON | Unknown | | + + +---------+ + Care Team Providers + +------+ + | Care Travelers' Aid Worker Name | Role | Phone | + [...] 06/19/2017) | | | | [place] [address] | | | | | | [phone] | | | +--------+ + + + [...] [place] | | | | | | [address] | | | | | | | | +--------+---------+ + + + | 02/07/ | Office | Cardiology | Kadi Boogie, | | | 2017 | Visit | | MD Frankie Yee | | | | | | Dr [address], | | | | | | [place] [address] | | | | | | [phone] | | | | | | | | +--------+---------+ + + + as of this encounter Visit Diagnoses Not on filein this encounter"
--- OUTSIDE RECORDS SUMMARY | ~2017-09-10 | XMS | Encounter Summary ---
Demographics + + + | Address | [address] | | | [place] [address] | + + + | Home Phone | | + + + | Preferred Language | Unknown | + + + | Marital Status | | + + + | Judaism Affiliation | 1013 | + + + | Race | Unknown | + + + | Ethnic Group | Unknown | + + + Author + + + | Author | [facility] | | | and Michaelana | + + + | Organization | [facility] | | | and Michaelana [...] Team Providers + +------+ + | Care Embedded Case Manager Name | Role | Phone | [...] [address] | | | | | [place], | [place] | | | | | [place] [address] | [address] | | | | | [phone] | | | +--------+--------+ + + + [...]
--- OUTSIDE RECORDS SUMMARY | 2017-09-10 19:16 | XMS | Clinical Summary ---
Demographics + + + | Address | [address] | | | [place] [address] | + + + | Home Phone | | + + + | Preferred Language | Unknown | + + + | Marital Status | | + + + | Mormon Affiliation | Unknown | + + + | Race | Unknown | + + + | Ethnic Group | Unknown | + + + Author + + + | Author | [facility] | + + + | Organization | [facility] | + + + | Address | Unknown | + + + | Phone | Unavailable | + + + Support + + +---------+ + | Name | Relationship | Address | Phone | + + +---------+ + | Ayad Chahal | ECON | Unknown | | + + +---------+ + Care Team Providers + +------+ + | Care Corporate Strategy Intern Name | Role | Phone | + +------+ + | Silvio Chu MD | PP | | + +------+ + Allergies + + + + + + | Active Allergy | Reactions | Severity | Noted | Comments | | | | | Date | | + + + + + + | Atenolol | Other (See Comments) | Medium | 02/08/20 | Does not remember | | | | | 17 | | + + + + + + | Lisinopril | Cough | Low | 02/08/20 | | | | | | 17 | | + + + + + + | Tramadol | Nausea Only | Low | 02/08/20 | | | | | | 17 | | + + + + + + | Trazodone & Diet | Other (See Comments) | Medium | 02/08/20 | Does not remember | | Manage Prod | | | 17 | | + + + + + + Current Medications + + +-------+---------+------+------+-------+ | Prescription | Sig. | Disp. | Refills | Star | End | Statu | | | | | | t | Date | s | | | | | | Date | | | + + +-------+---------+------+------+-------+ | Diclofenac Sodium | Place onto the | | | | | Activ | | 1 % CREA | skin. | | | | | e | + + +-------+---------+------+------+-------+ | Doxylamine | Take by mouth. | | | | | Activ | | Succinate, Sleep, | | | | | | e | | (SLEEP AID PO) | | | | | | | + + +-------+---------+------+------+-------+ | metoprolol | Take 25 mg by mouth | | | | | Activ | | (LOPRESSOR) 25 MG | 2 (two) times daily. | | | | | e | | tablet | | | | | | | + + +-------+---------+------+------+-------+ | amLODIPine | Take 5 mg by mouth | | | | | Activ | | (NORVASC) 5 MG | daily. | | | | | e | | tablet | | | | | | | + + +-------+---------+------+------+-------+ | aspirin 81 MG | Take 81 mg by mouth | | | | | Activ | | tablet | daily. | | | | | e | + + +-------+---------+------+------+-------+ | atorvastatin | Take 40 mg by mouth | | | | | Activ | | (LIPITOR) 40 MG | nightly. | | | | | e | | tablet | | | | | | | + + +-------+---------+------+------+-------+ | furosemide (LASIX) | Take 20 mg by mouth | | | | | Activ | | 40 MG tablet | daily. | | | | | e | + + +-------+---------+------+------+-------+ | olmesartan | Take 40 mg by mouth | | | | | Activ | | (BENICAR) 40 MG | daily. | | | | | e | | tablet | | | | | | | + + +-------+---------+------+------+-------+ | nitroGLYCERIN | Place 0.4 mg under | | | | | Activ | | (NITROSTAT) 0.4 MG | the tongue every 5 | | | | | e | | SL tablet | (five) minutes as | | | | | | | | needed for Chest | | | | | | | | pain. | | | | | | + + +-------+---------+------+------+-------+ | albuterol (PROAIR | Inhale 2 puffs into | | | | | Activ | | HFA) 108 (90 BASE) | the lungs every 4 | | | | | e | | MCG/ACT inhaler | (four) hours as | | | | | | | | needed for Wheezing. | | | | | | + + +-------+---------+------+------+-------+ | Multiple | Take by mouth. | | | | | Activ | | Vitamins-Minerals | | | | | | e | | (MULTIVITAMIN ADULTS | | | | | | | | 50+ PO) | | | | | | | + + +-------+---------+------+------+-------+ Active Problems + + + | Problem | Noted Date | + + + | CKD (chronic kidney disease), stage III | 06/26/2017 | + + + | Persistent proteinuria | 06/26/2017 | + + + | Hyperuricemia | 06/26/2017 | + + + | Macrocytic anemia | 06/26/2017 | + + + | S/P CABG x 3 | 08/25/2016 | + + + + + | Overview: Overview: | + + + + + | H/O: CVA (cerebrovascular accident) | 07/20/2016 | + + + | Essential hypertension, benign | 07/20/2016 | + + + | Dyslipidemia | 07/20/2016 | + + + Encounters +--------+ + + + + | Date | Type | Specialty | Care Team | Description | +--------+ + + + + | 08/02/ | Office | | Kadi Boogie, | S/P CABG x 3 | | 2018 | Visit | | MD | (Primary Dx); | | | | | | Essential | | | | | | hypertension, | | | | | | benign; CKD (chronic | | | | | | kidney disease), | | | | | | stage III | +--------+ + + + + | 06/26/ | Initial | | Avila Pulido MD | Essential | | 2018 | consult | | | hypertension, benign | | | | | | (Primary Dx); CKD | | | | | | (chronic kidney | | | | | | disease), stage III; | | | | | | Persistent | | | | | | proteinuria; | | | | | | Hyperuricemia; | | | | | | Macrocytic anemia | +--------+ + + + + | 06/26/ | Orders Only | | Brandi Verde CMA | CKD (chronic kidney | | 2018 | | | | disease), stage III | | | | | | (Primary Dx); | | | | | | Essential | | | | | | hypertension, | | | | | | benign; | | | | | | Hyperuricemia; | | | | | | Persistent | | | | | | proteinuria; | | | | | | Macrocytic anemia | +--------+ + + + + | 06/26/ | Orders Only | | Brandi Verde CMA | Essential | | 2018 | | | | hypertension, | | | | | | benign; CKD (chronic | | | | | | kidney disease), | | | | | | stage III; | | | | | | Persistent | | | | | | proteinuria; | | | | | | Hyperuricemia; | | | | | | Macrocytic anemia; | | | | | | Dyslipidemia | +--------+ + + + + | 06/26/ | Documentati | | Brandi Verde CMA | Imaging | | 2017 | on Only | | | (Retroperitoneal | | | | | | from | | | | | | dated 05/03/2017) | +--------+ + + + + | 06/20/ | Documentati | | Brandi Verde CMA | Labs Only ([facility] | | 2017 | on Only | | | Labs dated | | | | | | 06/19/2017) | +--------+ + + + + | 06/20/ | Orders Only | | Brandi Verde CMA | Essential | | 2017 | | | | hypertension; | | | | | | Dyslipidemia; | | | | | | Chronic kidney | | | | | | disease, stage III | | | | | | (moderate) | +--------+ + + + + | 06/16/ | Orders Only | | Brandi Verde CMA | Chronic kidney | | 2018 | | | | disease, stage III | | | | | | (moderate) (Primary | | | | | | Dx); Essential | | | | | | hypertension; | | | | | | Dyslipidemia | +--------+ + + + + from Last 3 Months Family History + + +------+ + | Medical History | Relation | Name | Comments | + + +------+ + | Dementia | Father | | | + + +------+ + | Heart disease | Mother | | | + + +------+ + | Cancer | Sister | | | + + +------+ + + +------+ + + | Relation | Name | Status | Comments | + +------+ + + | Father | | | | | | | (Age | | | | | 77) | | + +------+ + + | Mother | | | heart attack | | | | (Age | | | | | 74) | | + +------+ + + | Sister | | Alive | | + +------+ + + Social History + +-------+ +--------+------+ | Tobacco Use | Types | Packs/Day | Years | Date | | | | | Used | | + +-------+ +--------+------+ | Passive Smoke | | | | | | Exposure - Never | | | | | | Smoker | | | | | + +-------+ +--------+------+ + +---+---+---+ | Smokeless Tobacco: | | | | | Never Used | | | | + +---+---+---+ + + +---------+ + | Alcohol Use | Drinks/We | oz/Week | Comments | | | ek | | | + + +---------+ + | Yes | | | occ | + + +---------+ + + + + | Sex Assigned at | Date Recorded | | | | + + + | Not on file | | + + + Last Filed Vital Signs + + + + | Vital Sign | Reading | Time Taken | + + + + | Blood Pressure | 112/62 | 08/02/2017 10:36 AM PDT | + + + + | Pulse | 70 | 08/02/2017 10:36 AM PDT | + + + + | Temperature | 35.7 C (96.3 F) | 06/26/2017 9:49 AM PST | + + + + | Respiratory Rate | - | - | + + + + | Oxygen Saturation | 98% | 08/02/2017 10:36 AM PDT | + + + + | Inhaled Oxygen | - | - | | Concentration | | | + + + + | Weight | 75.6 kg (166 lb 11.2 | 08/02/2017 10:36 AM PDT | | | oz) | | + + + + | Height | 165.1 cm (5' 5") | 08/02/2017 10:36 AM PDT | + + + + | Body Mass Index | 27.74 | 08/02/2017 10:36 AM PDT | + + + + Plan of Treatment +--------+---------+ + + + | Date | Type | Specialty | Care Team | Description | +--------+---------+ + + + | 10/23/ | Office | | Avila Pulido MD | | | 2018 | Visit | | [address] | | | | | | [address] [place] | | | | | | [address] | | | | | | | | +--------+---------+ + + + | 02/07/ | Office | | Kadi Boogie, | | | 2017 | Visit | | [address] | | | | | | [address] [place], | | | | | | [place] [address] | | | | | | [phone] | | | | | | | | +--------+---------+ + + + + + + + + | Health Maintenance | Due Date | Last Done | Comments | + + + + + | Vaccine: | | | | | Dtap/Tdap/Td (1 - | 9 | | | | Tdap) | | | | + + + + + | DEXA SCAN SCREENING | | | | | | 5 | | | + + + + + | Vaccine: | | | | | Pneumococcal 65+ | 5 | | | | Low/Medium Risk (1 | | | | | of 2 - PCV13) | | | | + + + + + | Vaccine: Influenza | | | | | (Season Ended) | 8 | | | + + + + + Results Protein / creatinine ratio, urine (06/19/2017) + + + + | Component | Value | Ref Range | + + + + | UR | 223.7 (A) | 0 - 150 | | PROTEIN/CREATININE | | | + + + + + + + | Specimen | Performing Laboratory | + + + | Urine - Urine, | [facility] [place] | | Unspecified Source | [id number] | + + + Urinalysis (reflex to micro) (06/19/2017) + + + + | Component | Value | Ref Range | + + + + | COLOR UA | Yellow | | + + + + | CLARITY | Clear | | + + + + | SPECIFIC | 1.008 | 1.005 - 1.030 | | GRAVITY,URINE | | | + + + + | LEUKOCYTE ESTERASE | Negative | | + + + + | NITRITE | Negative | | + + + + | UROBILINOGEN | Normal | | + + + + | PROTEIN | Negative | | + + + + | PH,URINE | 5 | 5 - 9 | + + + + | BLOOD | Negative | | + + + + | KETONES | Negative | | + + + + | BILIRUBIN | Negative | | + + + + | GLUCOSE | Negative | | + + + + + + + | Specimen | Performing Laboratory | + + + | Urine | [facility] [address] [place] [address] [place] | | | [address] | + + + + + | Narrative | + + | Casts: Hyaline 2+ Bacteria: 1+ | + + CBC W/Auto Diff (Reflex to Manual) (06/19/2017) + + + + | Component | Value | Ref Range | + + + + | WBC | 5.3 | 4.5 - 11.0 10^3/mL | + + + + | RBC | 2.99 (A) | 3.8 - 5.1 10^6/ L | + + + + | HGB | 10.8 (A) | 12 - 16 g/dL | + + + + | HCT | 31.9 (A) | 35 - 45 % | + + + + | MCV | 106.5 (A) | 81 - 99 fL | + + + + | MCH | 36 (A) | 27 - 33 pg | + + + + | MCHC | 34 | 30 - 36 g/dL | + + + + | PLT | | K/ L | + + + + | RDW SD | 13.8 | 10.5 - 15.0 % | + + + + | MPV | | fL | + + + + | DIFF TYPE | | | + + + + | NEUTROPHILS | | % | + + + + | LYMPHOCYTES | | % | + + + + | MONOCYTES | | % | + + + + | EOSINOPHILS | | % | + + + + | BASOPHILS | | % | + + + + | NEUTROPHILS ABS | | / L | + + + + | LYMPHOCYTES ABS | | / L | + + + + | MONOCYTES ABS | | / L | + + + + | EOSINOPHILS ABS | | / L | + + + + | BASOPHILS ABS | | / L | + + + + + + + | Specimen | Performing Laboratory | + + + | Blood | [facility] [address], [address] [place], [place] | | | [address] | + + + Uric acid (06/19/2017) + +---------+ + | Component | Value | Ref Range | + +---------+ + | URIC ACID | 7.6 (A) | 2.3 - 6.6 | + +---------+ + + + + | Specimen | Performing Laboratory | + + + | Blood | [facility] [address], [address] [place], [place] | | | [address] | + + + Basic metabolic panel (06/19/2017) + + + + | Component | Value | Ref Range | + + + + | GLUCOSE | 98 | 70 - 100 mg/dL | + + + + | BUN | 22 | 6 - 23 mg/dL | + + + + | CREATININE | 1.49 (A) | 0.7 - 1.18 mg/dL | + + + + | BUN/CREAT | 14.8 | 6.0 - 28.6 | + + + + | CALCIUM | 9.6 | 8.4 - 10.2 mg/dL | + + + + | SODIUM | 139 | 132 - 143 mmol/L | + + + + | POTASSIUM | 4.3 | 3.6 - 5.1 mmol/L | + + + + | CHLORIDE | 104 | 95 - 112 mmol/L | + + + + | CO2 | 22 | 19 - 31 mmol/L | + + + + | ANION GAP AGAP | 17.3 | 7 - 21 mmol/L | + + + + | EGFR | 34 (A) | 60 mg/dL | + + + + + + + | Specimen | Performing Laboratory | + + + | Blood | [facility] [address], [facility] [address] [place], [place] | | | [address] | + + + from Last 3 Months Insurance + +--------+ +------+-------+ + | Payer | Benefi | Subscriber | Type | Phone | Address | | | t Plan | ID | | | | | | / | | | | | | | Group | | | | | + +--------+ +------+-------+ + | MEDICARE | MEDICA | xxxxxxxxxx | | | [address] | | | RE | | | | [place] [phone] | | | IP-OP | | | | | + +--------+ +------+-------+ + | UNITED HEALTHCARE | UNITED | xxxxxxxxxxx | | | | | | | | | | | | | HEALTH | | | | | | | CARE - | | | | | | | AARP | | | | | + +--------+ +------+-------+ + + +--------+ +--------+ + + | Guarantor Name | Accoun | Relation to | Date | Phone | Billing Address | | | t Type | Patient | of | | | | | | | | | | + +--------+ +--------+ + + | ANDERSON CHAHAL | Person | Self | [birth year] | Home: | [address] | | | al/Fam | | [phone] | [phone] | [place] | | | opal | | | 1965 | [phone] | + +--------+ +--------+ + +
--- OUTSIDE RECORDS SUMMARY | 2017-09-10 19:16 | XMS | Encounter Summary ---
Demographics + + + | Address | [address] | | | [place] [address] | + + + | Home Phone | | + + + | Preferred Language | Unknown | + + + | Marital Status | | + + + | Hindu Affiliation | Unknown | + + + | Race | Unknown | + + + | Ethnic Group | Unknown | + + + Author + + + | Author | [facility] [employer] [facility] | + + + | Organization | [facility] | + + + | Address | Unknown | + + + | Phone | Unavailable | + + + Support + + +---------+ + | Name | Relationship | Address | Phone | + + +---------+ + | Ayad Chahal | ECON | Unknown | | + + +---------+ + Care Team Providers + +------+ + | Care Importer Or Exporter Name | Role | Phone | + +------+ + | Geronimo Chu MD | PCP | | + +------+ + Reason for Visit + + + | Reason | Comments | + + + | Follow-up | | + + + Encounter Details +--------+---------+ + + + | Date | Type | Department | Care Team | Description | +--------+---------+ + + + | 08/02/ | Office | [facility] | Kadi Martinez, | S/P CABG x 3 | | 2018 | Visit | Cardiology [place] | MD Frankie Yee | (Primary Dx); | | | | [address] | [address], | Essential | | | | [facility] [address] | [place] [address] | hypertension, | | | | [place] [address] | [phone] | benign; CKD (chronic | | | | [phone] | | kidney disease), | | | | | | stage III | +--------+---------+ + + + Social History + +-------+ +--------+------+ [...] on file | | + + + as of this encounter Last Filed Vital Signs + + + + | Vital Sign | Reading | Time Taken | + + + + | Blood Pressure | 112/62 | 08/02/2017 10:36 AM PDT | + + + + | Pulse | 70 | 08/02/2017 10:36 AM PDT | + + + + | Temperature | - | - | + + + + | Respiratory [...] AM PDT | + + + + in this encounter Progress Notes Kadi Martinez MD - 08/02/2017 10:30 AM PDTFormatting of this note may be different fro m the original. Date of the visit: 08/02/17 Chief Complaint Patient presents with Follow-up History of Present Illness: Patient is 77 y.o. female with history of coronary artery disease and bypass surgery in [facility] 2017. No further hospitalization. Did not get the knee surgery yet. Denies any chest pain or shortness of breath. No change in medication. Her activity has been limited due to left knee pain has been using a cane to ambulate. Continues to have numbness of the sternotomy site. Previously patient history. Patient had an episode of non-ST elevation NC on July 2016. She was transferred to [facility] where she had bypass surgery. She developed pulmonary embolism at the rehabilitation and was started on anticoagulation a t that time. REVIEW OF SYSTEMS Constitutional: Negative for fatigue, no fever or chills. HENT: Negative for nosebleeds, no runny nose or sneezing. Eyes: Negative for visual disturbance, no double vision, tearing or itching. Respiratory: Negative for cough and shortness of breath, no hemoptysis Cardiovascular: As HPI. Gastrointestinal: Negative for nausea, vomiting, abdominal pain and blood in stool. Genitourinary: Negative for hematuria, no dysuria. Musculoskeletal: Left knee pain using a cane to ambulate. Skin: Negative for color change, no rash. Neurological: Negative for dizziness, syncope and numbness. Hematological: Does not bruise/bleed easily. Psychiatric/Behavioral: The patient is not nervous/anxious. PAST MEDICAL & SURGICAL HISTORY Past Medical History Diagnosis Date Acquired hypothyroidism ASCVD (arteriosclerotic cardiovascular disease) Asthma CAD (coronary artery disease) Cerebrovascular disease Chronic kidney disease History of pulmonary embolism Hx of longterm use of blood thinners Hyperlipidemia Hypertension Malignant melanoma of lower limb (HCC) Normocytic anemia Protein S deficiency (HCC) Seborrheic keratosis Urinary incontinence Vertigo Past Surgical History Procedure Laterality Date CORONARY ARTERY BYPASS GRAFT HYSTERECTOMY THYROIDECTOMY TONSILLECTOMY MEDICATIONS Home Medications Current Outpatient Prescriptions: albuterol (PROAIR HFA) 108 (90 BASE) MCG/ACT inhaler, Inhale 2 puffs into the lungs ev esther 4 (four) hours as needed for Wheezing., Disp: , Rfl: amLODIPine (NORVASC) 5 MG tablet, Take 5 mg by mouth daily., Disp: , Rfl: aspirin 81 MG tablet, Take 81 mg by mouth daily., Disp: , Rfl: atorvastatin (LIPITOR) 40 MG tablet, Take 40 mg by mouth nightly., Disp: , Rfl: Diclofenac Sodium 1 % CREA, Place onto the skin., Disp: , Rfl: furosemide (LASIX) 40 MG tablet, Take 20 mg by mouth daily., Disp: , Rfl: metoprolol (LOPRESSOR) 25 MG tablet, Take 25 mg by mouth 2 (two) times daily., Disp: , Rfl: Multiple Vitamins-Minerals (MULTIVITAMIN ADULTS 50+ PO), Take by mouth., Disp: , Rfl: nitroGLYCERIN (NITROSTAT) 0.4 MG SL tablet, Place 0.4 mg under the tongue every 5 (fiv e) minutes as needed for Chest pain., Disp: , Rfl: olmesartan (BENICAR) 40 MG tablet, Take 40 mg by mouth daily., Disp: , Rfl: Doxylamine Succinate, Sleep, (SLEEP AID PO), Take by mouth., Disp: , Rfl: Allergies Allergies Allergen Reactions Atenolol Other (See Comments) Does not remember Trazamine [Trazodone & Diet Manage Prod] Other (See Comments) Does not remember Lisinopril Cough Tramadol Nausea Only PHYSICAL EXAM Vital Signs: BP 112/62 (BP Location: Left upper arm, Patient Position: Sitting) | Pulse 70 | Ht 1.651 m (5' 5") | Wt 75.6 kg (166 lb 11.2 oz) | SpO2 98% | BMI 27.74 kg/m Constitutional: Well-developed. Neck: No JVD present. No thyromegaly present. Cardiovascular: Regular rhythm, S1 normal and S2 normal. No murmur heard. Pulses: Carotid pulses are 2+ on the right side, and 2+ on the left side. Radial pulses are 2+ on the right side, and 2+ on the left side. Pulmonary/Chest: Effort normal and breath sounds normal. No wheezes. No rales. Abdominal: Soft. No tenderness. Musculoskeletal: No edema. Neurological: Alert. No cranial nerve deficit. Skin: Warm and dry. DATA Lab Results Component Value Date NA 139 06/19/2017 K 4.3 06/19/2017 CL 104 06/19/2017 CO2 22 06/19/2017 BUN 22 06/19/2017 CREATININE 1.49 (A) 06/19/2017 No results found for: CKTOTAL, CKMB, CKMBINDEX, TROPONINI Lab Results Component Value Date WBC 5.3 06/19/2017 HGB 10.8 (A) 06/19/2017 HCT 31.9 (A) 06/19/2017 MCV 106.5 (A) 06/19/2017 PLT 155 03/31/2017 Lab Results Component Value Date GLUF 98 06/19/2017 TSH 1.99 04/24/2017 EK02/07/2017 Ordered and reviewed by myself showed normal sinus rhythm, normal axis, overall normal EKG. Last Echo: 07/21/2016 On transthoracic echocardiogram as well as transesophageal echocardiogram reported to have preserved ejection fraction EF 60%. Last cath: 07/20/2016 Severe triple vessel coronary artery disease. Op Report 07/21/2016 SARAH to LAD, SVG to OM and SVG to RCA. ASSESSMENT & PLAN: Patient is 77 y.o. with the following medical problems. 1. Coronary artery disease status post CABG 3. No anginal symptoms. 2. Hypertension currently blood pressure is controlled. 3. Provoked pulmonary embolism after cardiac surgery. Patient completed 6 months of anticoa gulation. 4. Significant arthritic left knee pain planning for knee replacement. 5. Dyslipidemia on statin. 6. CKD stage 3. Recommendations: At this time patient is chest pain-free. No anginal symptoms. No significant valvular patho logy and no signs of congestive heart failure. 1. Continue on aspirin and statin. 2. Continue on metoprolol and Benicar. 3. Patient is planning for moderate risk surgery/knee replacement at this time can proceed with acceptable risk. No anginal symptoms, no signs of congestive heart failure, continue wi th blood pressure control. 4. Follow-up in 6 months or earlier if needed. Thank you for allowing me to participate in the care of this patient. Primary Care Physician: GERONIMO Martinez MD 08/02/2017in this encounter Plan of Treatment +--------+---------+ + + + | Date | Type | Specialty | Care Team | Description | +--------+---------+ + + + | 10/23/ | Office | Nephrology | Avila Pulido MD | | | 2017 | Visit | | [address] | | | | | | [address] [facility] | | | | | | [id number] | | | | | | | | +--------+---------+ + + + | 02/07/ | Office | Cardiology | Kadi Martinez, | | | 2017 | Visit | | [address] | | | | | | [address] [place], | | | | | | [place] [address] | | | | | | [phone] | | | | | | | | +--------+---------+ + + + as of this encounter Visit Diagnoses + + | Diagnosis | + + | S/P CABG x 3 - Primary | + + | Postsurgical aortocoronary bypass status | + + | Essential hypertension, benign | + + | CKD (chronic kidney disease), stage III | + + | Chronic kidney disease, Stage III (moderate) | + +
--- OUTSIDE RECORDS SUMMARY | 2017-09-10 19:16 | XMS | Encounter Summary ---
Demographics + + + | Address | [address] | | | [place] [address] | + + + | Home Phone | | + + + | Preferred Language | Unknown | + + + | Marital Status | | + + + | Scientology Affiliation | Unknown | + + + | Race | Unknown | + + + | Ethnic Group | Unknown | + + + Author + + + | Author | [facility] | + + + | Organization | [facility] | + + + | Address | Unknown | + + + | Phone | Unavailable | + + + Support + + +---------+ + | Name | Relationship | Address | Phone | + + +---------+ + | Ayad Chahal | ECON | Unknown | | + + +---------+ + Care Team Providers + +------+ + | Care Instructional Designer Name | Role | Phone | + +------+ + | Silvio Chu MD | PCP | | + +------+ + Reason for Referral Consultation (Routine) +--------+ + + + + + | Status | Reason | Specialty | Diagnoses / | Referred By | Referred To | | | | | Procedures | Contact | Contact | +--------+ + + + + + | Closed | Specialty | Hematology | Diagnoses | Tess, | Steve | | | Services | and Oncology | Essential | Avila Lundberg MD | Hematology | | | Required | | hypertension | [address] | Oncology | | | | | , benign | Valente Roblero | [address] | | | | | CKD (chronic | [address] | | | | | kidney | [place], | [place], | | | | | disease), | [place] [address] | [place] [address] | | | | | stage III | Phone: | Phone: | | | | | Persistent | [phone] | [phone] | | | | | proteinuria | Fax: | Fax: | | | | | | [phone] | [phone] | | | | | Hyperuricemi | | | | | | | a | | | | | | | Macrocytic | | | | | | | anemia | | | | | | | Dyslipidemia | | | +--------+ + + + + + + + | Scheduling Instructions | + + | Please call patient to schedule. | + + Encounter Details +--------+ + + + + | Date | Type | Department | Care Team | Description | +--------+ + + + + | 06/26/ | Orders Only | [facility] | Brandi Verde CMA | Essential | | 2018 | | [place] [address] | | hypertension, | | | | [address] | | benign; CKD (chronic | | | | [address] [place], [place] | | kidney disease), | | | | [address] | | stage III; | | | | | | Persistent | | | | | | proteinuria; | | | | | | Hyperuricemia; | | | | | | Macrocytic anemia; | | | | | | Dyslipidemia | +--------+ + + + + Social History + +-------+ [...] + + + as of this encounter Plan of Treatment +--------+---------+ + + + | Date | Type | Specialty | Care Team | Description | +--------+---------+ + + + | 10/23/ | Office | Nephrology | Avila Pulido MD | | | 2018 | Visit | | [address] | | | | | | [address] [place], [place] | | | | | | [address] | | | | | | | | +--------+---------+ + + + | 02/07/ | Office | Cardiology | Kadi Boogie, | | | 2017 | Visit | | [address] | | | | | | [address], | | | | | | [place] [address] | | | | | | [phone] | | | | | | | | +--------+---------+ + + + + +--------+ + + | Name | Priori | Associated Diagnoses | Order Schedule | | | ty | | | + +--------+ + + | Renal function panel | Routin | Essential | Expected: | | | e | hypertension, benign | 09/23/2017, Expires: | | | | CKD (chronic | 06/26/2018 | | | | kidney disease), | | | | | stage III | | | | | Persistent | | | | | proteinuria | | | | | Hyperuricemia | | | | | Macrocytic anemia | | | | | Dyslipidemia | | + +--------+ + + | CBC W/Auto Diff (Reflex to | Routin | Essential | Expected: | | Manual) | e | hypertension, benign | 09/23/2017, Expires: | | | | CKD (chronic | 06/26/2018 | | | | kidney disease), | | | | | stage III | | | | | Persistent | | | | | proteinuria | | | | | Hyperuricemia | | | | | Macrocytic anemia | | | | | Dyslipidemia | | + +--------+ + + | PTH intact no calcium | Routin | Essential | Expected: | | | e | hypertension, benign | 09/23/2017, Expires: | | | | CKD (chronic | 06/26/2018 | | | | kidney disease), | | | | | stage III | | | | | Persistent | | | | | proteinuria | | | | | Hyperuricemia | | | | | Macrocytic anemia | | | | | Dyslipidemia | | + +--------+ + + | Uric acid | Routin | Essential | Expected: | | | e | hypertension, benign | 09/23/2017, Expires: | | | | CKD (chronic | 06/26/2018 | | | | kidney disease), | | | | | stage III | | | | | Persistent | | | | | proteinuria | | | | | Hyperuricemia | | | | | Macrocytic anemia | | | | | Dyslipidemia | | + +--------+ + + | Urinalysis (reflex to micro) | Routin | Essential | Expected: | | | e | hypertension, benign | 09/23/2017, Expires: | | | | CKD (chronic | 06/26/2018 | | | | kidney disease), | | | | | stage III | | | | | Persistent | | | | | proteinuria | | | | | Hyperuricemia | | | | | Macrocytic anemia | | | | | Dyslipidemia | | + +--------+ + + | Protein / creatinine ratio, urine | Routin | Essential | Expected: | | | e | hypertension, benign | 09/23/2017, Expires: | | | | CKD (chronic | 06/26/2018 | | | | kidney disease), | | | | | stage III | | | | | Persistent | | | | | proteinuria | | | | | Hyperuricemia | | | | | Macrocytic anemia | | | | | Dyslipidemia | | + +--------+ + + + +--------+ + + | Name | Priori | Associated Diagnoses | Order Schedule | | | ty | | | + +--------+ + + | Ambulatory referral to Hematology | Routin | Essential | Ordered: 06/26/2017 | | / Oncology | e | hypertension, benign | | | | | CKD (chronic | | | | | kidney disease), | | | | | stage III | | | | | Persistent | | | | | proteinuria | | | | | Hyperuricemia | | | | | Macrocytic anemia | | | | | Dyslipidemia | | + +--------+ + + as of this encounter Visit Diagnoses + + | Diagnosis | + + | Essential hypertension, benign | + + | CKD (chronic kidney disease), stage III | + + | Chronic kidney disease, Stage III (moderate) | + + | Persistent proteinuria | + + | Proteinuria | + + | Hyperuricemia | + + | Other abnormal blood chemistry | + + | Macrocytic anemia | + + | Unspecified deficiency anemia | + + | Dyslipidemia | + + | Other and unspecified hyperlipidemia | + +"
--- OUTSIDE RECORDS SUMMARY | 2017-09-10 19:16 | XMS | Encounter Summary ---
Demographics + + + | Address | [address] | | | [place] [address] | + + + | Home Phone | | + + + | Preferred Language | Unknown | + + + | Marital Status | | + + + | Mu-Ism Affiliation | Unknown | + + + | Race | Unknown | + + + | Ethnic Group | Unknown | + + + Author + + + | Author | [facility] | + + + | Organization | [facility] | + + + | Address | Unknown | + + + | Phone | Unavailable | + + + Support + + +---------+ + | Name | Relationship | Address | Phone | + + +---------+ + | Ayad Chahal | ECON | Unknown | | + + +---------+ + Care Team Providers + +------+ + | Care Manager Summer Name | Role | Phone | + +------+ + | Silvio Chu MD | PCP | | + +------+ + Encounter Details +--------+ + + + + | Date | Type | Department | Care Team | Description | +--------+ + + + + | 06/26/ | Orders Only | [facility] | Brandi Verde CMA | CKD (chronic kidney | | 2017 | | [place] [address] | | disease), stage III | | | | [address] | | (Primary Dx); | | | | [address] [place], [place] | | Essential | | | | [address] | | hypertension, | | | | | | benign; | | | | | | Hyperuricemia; | | | | | | Persistent | | | | | | proteinuria; | | | | | | Macrocytic anemia | +--------+ + + + + Social [...] [place] | | | | | | [id number] | | | | | | | | +--------+---------+ + + + | 02/07/ | Office | Cardiology | Kadi Boogie, | | | 2017 | Visit | | MD Frankie Yee | | | | | | [address] | | | | | | [place] [address] | | | | | | [phone] | | | | | | | | +--------+---------+ + + + + +--------+ + + | Name | Priori | Associated Diagnoses | Order Schedule | | | ty | | | + +--------+ + + | US Retroperitoneal complete | Routin | Essential | Expected: | | | e | hypertension, benign | 06/26/2017, Expires: | | | | CKD (chronic | 03/29/2018 | | | | kidney disease), | | | | | stage III | | | | | Hyperuricemia | | | | | Persistent | | | | | proteinuria | | | | | Macrocytic anemia | | + +--------+ + + as of this encounter Visit Diagnoses + + | Diagnosis | + + | CKD (chronic kidney disease), stage III - Primary | + + | Chronic kidney disease, Stage III (moderate) | + + | Essential hypertension, benign | + + | Hyperuricemia | + + | Other abnormal blood chemistry | + + | Persistent proteinuria | + + | Proteinuria | + + | Macrocytic anemia | + + | Unspecified deficiency anemia | + +"
--- OUTSIDE RECORDS SUMMARY | 2017-09-10 19:16 | XMS | Encounter Summary ---
Demographics + + + | Address | [address] | | | [place] [address] | + + + | Home Phone | | + + + | Preferred Language | Unknown | + + + | Marital Status | | + + + | Evangelical Affiliation | Unknown | + + + | Race | Unknown | + + + | Ethnic Group | Unknown | + + + Author + + + | Author | [facility] | + + + | Organization | [facility] | + + + | Address | Unknown | + + + | Phone | Unavailable | + + + Support + + +---------+ + | Name | Relationship | Address | Phone | + + +---------+ + | Ayad Chahal | ECON | Unknown | | + + +---------+ + Care Team Providers + +------+ + | Care Straightening Press Operator Helper Name | Role | Phone | + +------+ + | Silvio Chu MD | PCP | | + +------+ + Reason for Visit +---------+ + | Reason | Comments | +---------+ + | Imaging | Retroperitoneal from dated 05/03/2017 | +---------+ + Encounter Details +--------+ + + + + | Date | Type | Department | Care Team | Description | +--------+ + + + + | 06/26/ | Documentati | [facility] | Bradni Verde CMA | Imaging | | 2018 | on Only | [place] [address] | | (Retroperitoneal | | | | [address] | | from [facility] | | | | [address] [place], [place] | | dated 05/03/2017) | | | | [address] | | | +--------+ + + + + Social [...] [place] | | | | | | [address] | | | | | | | | +--------+---------+ + + + | 02/07/ | Office | Cardiology | Kadi Boogie, | | | 2017 | Visit | | MD Frankie Yee | | | | | | [address], | | | | | | [place] [address] | | | | | | [phone] | | | | | | | | +--------+---------+ + + + as of this encounter Visit Diagnoses Not on filein this encounter"
[2017-10-20] MEDS ORDERED: ZANTAC150 MG PO (11:02)
[2017-10-20] MEDS ORDERED: ZOLOFT25 MG PO (11:02)
== END 2017-09-10 21:11 | disposition home or self-care (01) ==
LOC: ED 18:14
DX: R19.7 Diarrhea, unspecified (principal); C90.00 Multiple myeloma not having achieved remission; I10 Essential (primary) hypertension; Z88.8 Allergy status to other drugs, medicaments and biological substances; Z88.5 Allergy status to narcotic agent; Z79.899 Other long term (current) drug therapy; Z79.82 Long term (current) use of aspirin
CPT/HCPCS: 80053; 85025; 99283